=== PATIENT | female | born 2000 | race Two or more races ===

== ENCOUNTER 2023-06-17 09:49 | Emergency (ER) | payer OTHER ==
[~2023-06-17] VITALS: Ht 165.1 cm; Wt 59.0 kg
[2023-06-17] MEDS ORDERED: ELVITEG/COB/EMTRI/TENOFO DISOP 1 UDTAB TABLET PO ONE (11:15)
[2023-06-17] MEDS ORDERED: TETANUS & DIPHTHERIA TOX,ADULT 0.5 ML VIAL IM ONE (11:15)
[2023-06-17] MEDS ORDERED: CEFTRIAXONE SODIUM 1,000 MG VIAL IM ONE (11:15)
[2023-06-17 12:19] LABS: HEMATOCRIT 39.4 % (36.0-45.00); HEMOGLOBIN 13.3 g/dL (12.0-15.00); MEAN CELL VOLUME 90.1 fL (80.00-100.00); MEAN CORPUSCULAR HEMOGLOBIN 30.4 pg (27.00-32.0); MEAN CORPUSCULAR HGB CONC 33.7 g/dl (32.0-36.0); PLATELET COUNT 305 K/uL (150-450); RED BLOOD COUNT 4.38 M/uL (4.00-6.00); RED CELL DISTRIBUTION WIDTH 14.1 % (11.5-14.5)
[2023-06-17 13:01] LABS: ALKALINE PHOSPHATASE 60 U/L (50-136); ALT/SGPT 26 U/L (12-78); ANION GAP 8 (10.0-20.0); AST/SGOT 18 U/L (15-37); BILIRUBIN TOTAL 0.25 mg/dL (0.3-1.2); BILIRUBIN,CONJUGATED < 0.10 mg/dL (0.0-0.2); BILIRUBIN,UNCONJUGATED 0.15 mg/dL (0.0-0.6); BLOOD UREA NITROGEN 16 mg/dL (7-18); BUN CREA RATIO 20 (7.0-25.0); CALCIUM 9.4 mg/dL (8.5-10.1); CARBON DIOXIDE 30 mEq/L (21-32); CHLORIDE 105 mmol/L (98-107); GFR 88.12; GLOBULINA 3.6 G/DL (2.4-3.5); GLUCOSE FASTING 85 mg/dL (65-100); OSMOLALITY SERUM 278 MOSM/KG (275-295); POTASSIUM 3.62 mEq/L (3.5-5.1); SODIUM 139 mmol/L (136-145); TOTAL PROTEIN 7.6 gm/dL (6.4-8.2)
[2023-06-17 13:02] LABS: HCG QUANTITATIVE < 1 mUI/mL (1-3)
== END 2023-06-17 13:22 | disposition home or self-care (01) ==
LOC: ER 09:50
PROVIDERS: General Practice
DX: S61.442A Puncture wound with foreign body of left hand, initial encounter (principal); W45.8XXA Other foreign body or object entering through skin, initial encounter; W26.8XXA Contact with other sharp object(s), not elsewhere classified, initial encounter; Y93.89 Activity, other specified; Y92.238 Other place in hospital as the place of occurrence of the external cause

== ENCOUNTER 2024-09-26 19:48 | Emergency (ER) | payer OTHER ==
[~2024-09-26] VITALS: Ht 162.6 cm; Wt 59.0 kg
[2024-09-26 20:11] VITALS: BP 106/61; O2SAT 100
[2024-09-26] MEDS ORDERED: KETOROLAC TROMETHAMINE 30 MG VIAL IM STA (21:28)
[2024-09-26] MEDS ORDERED: METHYLPREDNISOLONE SOD SUCC 125 MG VIAL IM STA (21:29)
[2024-09-26] MEDS ORDERED: KETOROLAC TROMETHAMINE 30 MG VIAL ONE (21:50)
[2024-09-26] MEDS ORDERED: METHYLPREDNISOLONE SOD SUCC 125 MG VIAL ONE (21:51)
[2024-09-26] MEDS ORDERED: WATER FOR INJ.,BACTERIOSTATIC 30 ML VIAL IJ ONE (21:51)
[2024-09-26] MEDS ORDERED: DEXAMETHASONE SODIUM PHOSPHATE 4 MG/ML VIAL ONE (22:02)
== END 2024-09-26 22:02 | disposition home or self-care (01) ==
LOC: ER 20:00
DX: M79.641 Pain in right hand (principal)